=== PATIENT | male | born 1995 | race Caucasian/White ===

== ENCOUNTER 2025-05-06 09:36 | Outpatient (AMB) | payer OTHER, SELFPAY ==
--- NOTE | 2025-05-06 09:38 | MHC.PC.OV ---
Vital Signs 05/06/25 09:45 Height 5 ft 11 in Weight 219 lb 8 oz BMI 30.6 BP 134/86 Blood Pressure Location Rt brachial Position Sitting Respiration 16 Pulse 59 Pulse Source Pulse Oximeter Temp 98.0 F Temp Source Temporal Artery Scan Pulse Oximetry (%) 97 Oxygen Delivery Method Room Air Intake Visit Reasons: New Patient Allergies No Known Allergies Allergy (Verified 05/06/25 09:49) Medication List - Last Reconciled 05/06/25 by Peterson Yu MD No Known Home Meds Tobacco use date assessed: 05/06/25 Dental Screening Dental Screen Date: 05/06/25 Did you have a dental visit in the last 12 months?: Yes Did you have a dental problem in the last 6 months where you did not have access to dental care?: No Was dental information given to patient?: Patient has dentist HPI New Patient HPI Details New Patient? ?? Prior PCP:? No Prior PCP Last office visit/CPE:? Acute issue(s):? Lipomas ?? PMHx:? None SurgHx:? Phimosis repvision. FHx:? Father: Heart Disease. SocHx: Nonsmoker, EtOH 1 beer in a month. No drugs PFSH Surgical History (Updated 05/06/25 @ 09:52 by Lacie Acosta CMA) No pertinent past surgical history Social History (Updated 05/06/25 @ 09:52 by Lacie Acosta CMA) Household Members: Spouse Housing: Apartment Alcohol intake: current Alcohol intake frequency: a few times a month Alcohol type: beer Patient Tobacco Use Status: Never used Tobacco e-Cigarette/Vaping Use: Never Used Use of substances other than those prescribed or required for medical reasons: No service: No Current occupational status: employed Current occupation: IT analysist specialist Cognitive needs: No Hearing needs: No Vision needs: Yes (glasses/contacts) Questionnaire PHQ-9 Over the last 2 weeks, how often have you been bothered by any of the following problems? 1. Little interest or pleasure in doing things: not at all 2. Feeling down, depressed, or hopeless: not at all 3. Trouble falling or staying asleep, or sleeping too much: not at all 4. Feeling tired or having little energy: not at all 5. Poor appetite or overeating: not at all 6. Feeling bad about yourself - or that you are a failure or have let yourself or your family down: not at all 7. Trouble concentrating on things, such as reading the newspaper or watching television: not at all 8. Moving or speaking so slowly that other people could have noticed. Or the opposite - being so fidgety or restless that you have been moving around a lot more than usual: not at all 9. Thoughts that you would be better off or of hurting yourself in some way: not at all Total score: 0 Depression Screening Interpretation: Negative Depression Screening Done: Yes 97693 - PHQ-9 Billing: Yes Source: Developed by Drs. Rito Alicia, Radha Gonzalez, Bubba Mack and colleagues, with an educational domenic from [employer]. Thrive Questionnaire Date Thrive assessed: 05/03/25 I am a: Patient What is your living situation today?: I have a steady place to live Within the past 12 months, did the food you bought not last and you didn't have the money to get more?: Never true Within the past 12 months, did you worry whether your food would run out before you got money to buy more?: Never true Do you have trouble paying for medicines?: No Do you have trouble getting transportation to medical appointments?: No Do you have trouble paying your heating and electricity bill?: No Do you have trouble taking care of your child, family member or friend?: No Do you have trouble with day-to-day activities such as bathing, preparing meals, shopping, managing finances, etc.?: No Are you currently unemployed and looking for a job?: No Are you interested in more education?: No Please select the resources that you would like help with: None Currently or been in a relationship where the following occur: I choose not to answer THRIVE Score: 0 AUDIT C Alcohol Use Questionnaire (AUDIT-C) 1. How often do you have a drink containing alcohol?: Monthly or less 2. How many drinks containing alcohol do you have on a typical day when you are drinking?: 1 or 2 3. How often do you have six or more drinks on one occasion?: Never Total Score: 1 KADEN-7 AMB Questionnaire KADEN-7 Date KADEN - 7 assessed: 05/06/25 Feeling nervous, anxious, or on edge: 0 = Not at all Not being able to stop or control worryin = Not at all Worrying too much about different things: 0 = Not at all Trouble relaxin = Not at all Being so restless that it is hard to sit still: 0 = Not at all Becoming easily annoyed or irritable: 0 = Not at all Feeling afraid as if something awful might happen: 0 = Not at all Total KADEN-7 score (0-4 normal; 5-9 mild; 10-14 moderate; 15-21 severe): 0 Source: Developed by Drs. Rito Alicia, Radha Gonzalez, Bubba Mack and colleagues, with an educational domenic from [employer]. KADEN-7 Assessment Billing KADEN-7 Assessment Tool: KADEN-7 Assessment 62994 Physical exam (Primary Care) Vital Signs: Last Vital Signs Temp 98.0 F 05/06/25 09:45 Pulse 59 05/06/25 09:45 Resp 16 05/06/25 09:45 BP 134/86 05/06/25 09:45 Pulse Ox 97 05/06/25 09:45 Oxygen Delivery Method Room Air 05/06/25 09:45 BMI result Body Mass Index 30.6 Tobacco/Smoking Status: Tobacco use Status Tobacco use date assessed 05/06/25 05/06/25 09:41 Patient Tobacco Use Status Never used Tobacco 05/06/25 09:54 e-Cigarette/Vaping Use Never Used 05/06/25 09:54 PHQ-9: PHQ-9 Score PHQ-9: Total score 0 05/06/25 10:03 Depression Screening Interpretation: Negative Thrive Assessment: Date of Thrive Assessment Date Thrive assessed 05/03/25 05/06/25 09:39 Currently or been in a relationship where the following occur: I choose not to answer Coding Level of Care Code New Pt Level 3 (60945) Diagnoses Lipoma D17.9 Family history of heart disease Z82.49 Laboratory exam ordered as part of routine general medical examination Z00.00 Additional Codes KADEN-7 Assessment Billing - KADEN-7 Assessment Tool: KADEN-7 Assessment 32995 ([id number]) PHQ-9 - 24713 - PHQ-9 Billing: Yes ([id number]) Assessment & Plan Assessment & Plan (1) Lipoma: Code(s): D17.9 - Benign lipomatous neoplasm, unspecified Category: Medical Plan: A few small lipomas less than 4 cm in diameter. Not currently changing He will let me know if these are changing or getting caught/irritated (2) Family history of heart disease: Code(s): Z82.49 - Family history of ischemic heart disease and other diseases of the circulatory system Category: Medical Plan: Checking labs including lipids (3) Laboratory exam ordered as part of routine general medical examination: Code(s): Z00.00 - Encounter for general adult medical examination without abnormal findings Category: Medical Plan: Check labs Orders: Orders Comprehensive [place]. Panel Fast Today Z00.00 - Encounter for general adult medical examination without abnormal findings Microalbumin, Random (w Creat) Today I10 - Essential (primary) hypertension UA CC w/rflx Micro + Cult Today Z00.00 - Encounter for general adult medical examination without abnormal findings TSH reflex Free T4 Today Z00.00 - Encounter for general adult medical examination without abnormal findings HIV Ab/Ag Today Z11.3 - Encounter for screening for infections with a predominantly sexual mode of transmission Lipid Panel Today Z00.00 - Encounter for general adult medical examination without abnormal findings CT NG by PCR Vag/Cerv Today Z11.3 - Encounter for screening for infections with a predominantly sexual mode of transmission Hepatitis B,C Profile Today Z11.3 - Encounter for screening for infections with a predominantly sexual mode of transmission Syphilis Screen Today Z11.3 - Encounter for screening for infections with a predominantly sexual mode of transmission Complete Blood Count Auto Diff Today Z00.00 - Encounter for general adult medical examination without abnormal findings
[2025-05-06 09:45] VITALS: BP 134/86; PULSE 59; RESP 16; TEMP 36.7; O2SAT 97; BMI 30.6
== END 2025-05-06 10:17 | disposition home or self-care (01) ==
LOC: HO.HMCFM 09:37
PROVIDERS: PCP Family Medicine; Visit Provider Family Medicine
DX: D17.9 Benign lipomatous neoplasm, unspecified (principal); Z82.49 Family history of ischemic heart disease and other diseases of the circulatory system; Z00.00 Encounter for general adult medical examination without abnormal findings

== ENCOUNTER → 2025-05-06 09:36 | Outpatient (BNVA) | payer OTHER, SELFPAY | PROVIDERS: PCP Family Medicine; Visit Provider Family Medicine | DX: Z00.00 Encounter for general adult medical examination without abnormal findings (principal); I10 Essential (primary) hypertension; D17.9 Benign lipomatous neoplasm, unspecified; Z82.49 Family history of ischemic heart disease and other diseases of the circulatory system | CPT/HCPCS: 96127 ==

== ENCOUNTER 2025-05-09 07:51 | Outpatient (REF) | payer OTHER, SELFPAY ==
[2025-05-09 11:33] LABS: MANUAL DIFF FLAG NO
[2025-05-09 11:35] LABS: Appearance Urine Cloudy; Glucose Urine UA Negative (Negative); PH 6.0 (5.0-9.0); Specific Gravity - Urine >= 1.030 (1.005-1.025)
[2025-05-09 11:43] LABS: Hematocrit 43.4 % (42.0-52.0); Hemoglobin 14.8 g/dl (14.0-18.0); Imm Gran Abs Auto 0.03 X10*3/uL (0.00-0.03); Imm Gran Pct Auto 0.6 % (0.0-0.4); Lymphocytes Absolute Auto 2.0 X10*3/uL (1.2-4.9); Mean Corpuscular HGB Conc 34.1 g/dl (31.0-36.0); Mean Corpuscular Hemoglobin 29.7 pg (27.0-33.0); Mean Corpuscular Volume 87.1 fL (80.0-98.0); NRBC Abs Auto 0.000 X10*3/uL (0.0-0.012); NRBC Pct Auto 0.0 /100WBC (0.0-0.2); Platelet Count 218 X10*3/uL (160-400); Red Blood Count 4.98 X10*6/uL (4.60-5.80); White Blood Count 5.1 X10*3/uL (4.8-10.8)
[2025-05-09 12:05] LABS: Alanine Aminotransferase 44 U/L (0-40); Albumin Level 4.7 g/dL (3.5-5.0); Alkaline Phosphatase 59 U/L (39-117); Anion Gap 10 (12-20); Aspartate Amino Transferase 30 U/L (5-37); Blood Urea Nitrogen 17 mg/dL (9-16); Calcium 9.2 mg/dL (8.4-10.2); Carbon Dioxide 30 mmol/L (22-29); Chloride 105 mmol/L (96-108); Cholesterol 261 mg/dL (<200); Estimated Glomerular Filt Rate > 60; HDL Cholesterol 39 mg/dL (>40); Potassium 4.1 mmol/L (3.3-5.1); Sodium 141 mmol/L (135-145); Total Protein 7.2 g/dL (6.5-8.0); Triglycerides 267 mg/dL (<150)
[2025-05-09 12:14] LABS: Microalbum/Creatinine Ratio Ur 3.1 ug/mg cr (<30)
[2025-05-09 12:15] LABS: Syphilis Screen Nonreactive (Nonreactive)
[2025-05-09 12:26] LABS: HBS Num1 0.00 mIU/mL (0-7.99); HBc Num1 0.05 S/CO (0.00-0.79); HBsAGNum1 0.37 S/CO (0.00-0.99); HIV Num 1 0.05 S/CO (0.00-0.99); Hepatitis B Surface Antigen Negative (Negative); ~HepC Num1 0.08 S/CO (0.00-0.79); ~Hepatitis B Surface Antibody NONREACTIVE (Nonreactive); ~Hepatitis C Antibody Nonreactive (Nonreactive)
== END 2025-05-09 07:52 | disposition home or self-care (01) ==
LOC: HO.WFDLDS 07:51
PROVIDERS: Visit Provider Family Medicine
DX: Z11.3 Encounter for screening for infections with a predominantly sexual mode of transmission (principal); Z11.59 Encounter for screening for other viral diseases; Z00.00 Encounter for general adult medical examination without abnormal findings
CPT/HCPCS: 36415; 80053; 80061; 81003; 82043; 82570; 84443; 85025; 86704; 86706; 86780; 86803; 87340; 87389